=== PATIENT | male | born 1985 | race Native Hawaiian/Other Pacific Islander ===

== ENCOUNTER 2023-06-26 08:32 | Outpatient (AMB) | payer OTHER, SELFPAY ==
[2023-06-26 08:44] VITALS: BP 136/86; PULSE 57; RESP 12; TEMP 36.6; O2SAT 99; BMI 30.4
--- NOTE | 2023-06-26 08:44 | MHC.PC.OV ---
Vital Signs 06/26/23 08:44 Height 6 ft Weight 224 lb 6 oz BMI 30.4 BP 136/86 Blood Pressure Location Lt brachial Position Sitting Respiration 12 Pulse 57 Pulse Source Pulse Oximeter Temp 97.8 F Temp Source Temporal Artery Scan Pulse Oximetry (%) 99 Oxygen Delivery Method Room Air Intake Visit Reasons: CPE Intake Note: Patient states that he would like a referral to a Rn Relief Charge. Patient states that his arms have been itching and still has dry cracked skin in palms of his hands. Patient states he would also like a referral to security assurance specialist to get his hands looked at due to him dropping things and still having sharp pain in hands. Patient is nervous that when it gets colder out hes ora have a harder time with his hands. Cargo Mate Required: No Accompanied by: Spouse Allergies No Known Allergies Allergy (Verified 06/26/23 09:00) Medication List - Last Reconciled 06/26/23 by Sammie Lo CNP naproxen 500 mg PO BID PRN 30 days Tobacco use date assessed: 05/01/23 Dental Screening Dental Screen Date: 06/26/23 Did you have a dental visit in the last 12 months?: Yes Did you have a dental problem in the last 6 months where you did not have access to dental care?: No Was dental information given to patient?: Patient has dentist HPI HPI Comments History of Present Illness Details 38-year-old male presents for complete physical exam. Reports dry skin to an area of his right palm; sometimes itchy. He has been applying lotion with no improvement. He reports significant improvement of rash to exposed areas of skin. He notes he has been taking Benadryl, using sunscreen, and protecting the areas from the sun. He states that the pain and weakness to his left hand has significantly improved. He notes he takes naproxen as prescribed. 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 Sidney Cartagena, Matilda Maldonado, Sergo Weir and colleagues, with an educational kasie from [employer]. Review of Systems Const Details: Denies chills, Denies fatigue, Denies fever(s), Denies headache(s) and Denies weakness HEENT Denies change in vision, Denies dizziness, Denies headache(s), Denies hearing loss, Denies nasal congestion, Denies sinus pain, Denies sinus pressure and Denies sore throat Card Denies chest pain, Denies lightheadedness, Denies dyspnea and Denies other (palpitations) Resp Denies cough, Denies dyspnea and Denies wheezing GI Denies abdominal pain, Denies melena, Denies hematochezia, Denies change in bowel habits, Denies dyspepsia and Denies nausea Denies hematuria and Denies dysuria Musc Denies abnormal gait, Denies myalgias, Denies arthralgias, Denies numbness and Denies tingling Skin/Breast Dry skin to right palm, Denies unusual bruising and Denies wounds Neuro Denies abnormal gait, Denies dizziness, Denies headache(s), Denies memory loss, Denies numbness, Denies Sensory deficit (Neuro), Denies tingling and Denies weakness Psych Denies anxiety, Denies depression and Denies memory loss Endo Denies cold intolerance, Denies fatigue, Denies heat intolerance, Denies polydipsia and Denies polyuria Rashi/Lymph Denies easy bleeding and Denies easy bruising Aller/Immun Denies wheezing Physical exam (Primary Care) Vital Signs: Last Vital Signs Temp 97.8 F 06/26/23 08:44 Pulse 57 06/26/23 08:44 Resp 12 06/26/23 08:44 BP 136/86 06/26/23 08:44 Pulse Ox 99 06/26/23 08:44 Oxygen Delivery Method Room Air 06/26/23 08:44 BMI result Body Mass Index 30.4 Tobacco/Smoking Status: Tobacco use Status Tobacco use date assessed 05/01/23 06/26/23 08:54 Patient Tobacco Use Status Former Tobacco user 06/26/23 08:54 Tobacco use type Cigarette 06/26/23 08:54 e-Cigarette/Vaping Use Never Used 06/26/23 08:54 Thrive Assessment: Date of Thrive Assessment Date Thrive assessed 05/01/23 06/26/23 08:54 Const Other: General: no acute distress, well developed, alert and awake Nutritional Appearance: well nourished Orientation/consciousness: patient oriented x3 HENMT Head: Yes normocephalic and Yes atraumatic Ears: hearing grossly normal bilaterally and TM's normal bilaterally General nose exam: Normal external nose present and Normal nares present Mouth: Normal oral and palatal mucosa present and moist mucous membranes Teeth and gingiva: dentition normal Throat: Yes oropharynx normal Eyes Pupils: Equal, round and reactive pupils present and Pupil accommodation reflex normal EOM: EOMs intact bilaterally Neck Neck: Yes normal visual inspection, Yes no lymphadenopathy and Yes trachea midline Thyroid: Thyroid normal Carotids: no bruits Lymphatic: no lymphadenopathy noted Chest Chest palpation & inspection: normal inspection of the chest Resp Effort & Inspection: normal respiratory effort Auscultation: clear to auscultation bilaterally Cardio Rate: regular rate Rhythm: regular rhythm Heart sounds: S1 normal heart sound present, S2 normal heart sound present, no gallops, no murmurs and no rubs Bruits: no abdominal aortic bruits and no carotid bruits GI Palpation (GI): No Abdominal aortic bruit present, Soft to palpation, nontender, No hepatosplenomegaly present and No Rebound tenderness present Auscultation: normal bowel sounds General: Yes no CVA tenderness Back/Spine/Pelvis Back: no CVA tenderness Cervical Spine: cervical ROM normal and No Cervical spine tenderness Thoracic/Lumbar Spine: thoraco-lumbar ROM normal, No pain with thoraco-lumbar ROM, No thoracic spinal tenderness and No lumbar spinal tenderness Skin General: warm and dry. Normal skin color. Normal skin turgor Lesions: no lesions Rashes: Brighter colored rash noted on sun-exposed areas of the arms, not rough or scaly.? No rash on the neck Trauma: no lacerations or abrasions Wounds: no wounds Nails: normal Neuro General: patient oriented x3, gait normal and CN's II-XI intact bilaterally Cranial nerves: Yes Equal, round and reactive pupils present Cognition (Neuro): normal cognition Gait exam (Neuro): Normal gait present Motor exam (neuro): 5/5 motor strength present throughout Sensory Exam: No Sensory deficit (Neuro) Deep tendon reflexes (DTR's): Right patellar reflex intensity grade: 2+ and Left patellar reflex intensity grade: 2+ Extrem General: Yes normal to inspection, No edema and No calf tenderness Psych Appearance: grossly normal Affect: normal affect Attitude: cooperative Thought process: Normal thought process present Assessment and Plan Assessment & Plan (1) Normal physical examination, routine: Code(s): Z00.00 - Encounter for general adult medical examination without abnormal findings Plan: No significant physical restrictions or limitations Encouraged to schedule his next physical for a year from today Return with worsening or new symptoms Verbalized understanding and agreed with the plan. (2) Hypertriglyceridemia: Code(s): E78.1 - Pure hyperglyceridemia Plan: Recent blood work reviewed with the patient Triglyceride is elevated Advised to limit foods high in saturated fat and avoid foods high trans fat Routine exercise encouraged Verbalized understanding and agreed with the plan. (3) Dry skin: Code(s): L85.3 - Xerosis cutis Plan: Reports dry skin to an area of his right palm; sometimes itchy. He has been applying lotion with no improvement. Dry, peeling skin noted to a small area of the right palm Likely dermatitis May use hydrocortisone cream twice a day Follow-up with worsening or new signs and symptoms Verbalized understanding and agreed with treatment plan. Coding Level of Care Code Est Pt Prev Care 18-39y(94385) Diagnoses Normal physical examination, routine Z00.00 Hypertriglyceridemia E78.1 Dry skin L85.3
== END 2023-06-26 09:21 | disposition home or self-care (01) ==
PROVIDERS: PCP Nurse Practitioner Family; Visit Provider Nurse Practitioner Family
DX: Z00.00 Encounter for general adult medical examination without abnormal findings (principal); E78.1 Pure hyperglyceridemia; L85.3 Xerosis cutis
CPT/HCPCS: 99395

== ENCOUNTER 2024-01-15 15:35 | Outpatient (AMB) | payer OTHER, SELFPAY ==
[2024-01-15 15:39] VITALS: BP 122/76; PULSE 62; RESP 13; TEMP 36.3; O2SAT 99; BMI 30.4
--- NOTE | 2024-01-15 15:39 | MHC.PC.OV ---
Vital Signs 01/15/24 15:39 Height 6 ft Weight 224 lb BMI 30.4 BP 122/76 Blood Pressure Location Rt brachial Position Sitting Respiration 13 Pulse 62 Pulse Source Pulse Oximeter Temp 97.3 F Temp Source Temporal Artery Scan Pulse Oximetry (%) 99 Oxygen Delivery Method Room Air Intake Visit Reasons: Requesting Referrals Power Equipment Technology Instructor Required: No Accompanied by: Self / Same As Patient Allergies No Known Allergies Allergy (Verified 01/15/24 15:46) Tobacco use date assessed: 01/15/24 Dental Screening Dental Screen Date: 01/15/24 Did you have a dental visit in the last 12 months?: Yes Did you have a dental problem in the last 6 months where you did not have access to dental care?: No Was dental information given to patient?: Patient has dentist HPI HPI Comments History of Present Illness Details 38-year-old male presents with complaints of recurring pain to his left wrist with flexion and extension. He describes the pain as predominantly aching and occasionally shocking and tingling sensation. His symptoms occur at least once daily while he is working. No numbness or loss of sensation. 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 He notes that the Naproxen is not as effective as before. He no longer was not continue taking Naproxen. He takes Ibuprofen as needed with some relief. He also reports chronic dry skin with itching to the palm of his right hand refractory to hydrocortisone cream and various swiz-lwq-[id number] moisturizers he has tried. 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 Sidney Cartagena, Matilda Maldonado, Sergo Weir and colleagues, with an educational kasie from [employer]. Review of Systems Const Details: Const Denies chills, Denies fatigue, Denies fever(s), Denies headache(s) and Denies weakness ENT Denies dizziness and Denies headache(s) Card Denies chest pain, Denies lightheadedness, Denies dyspnea and Denies other (Palpitations) Resp Denies cough, Denies dyspnea, Denies wheezing and Denies other ( shortness of breath) GI Denies abdominal pain, Denies melena, Denies hematochezia, Denies change in bowel habits, Denies dyspepsia and Denies nausea Denies hematuria and Denies dysuria Musc Reports as per HPI Skin/Breast Reports as per HPI Neuro Denies abnormal gait, Denies dizziness, Denies headache(s), Denies memory loss, Denies numbness, Denies Sensory deficit (Neuro), Denies tingling and Denies weakness Psych Denies anxiety, Denies depression, Denies memory loss Endo Denies cold intolerance, Denies fatigue, Denies heat intolerance, Denies polydipsia and Denies polyuria Aller/Immun Denies wheezing Physical exam (Primary Care) Vital Signs: Last Vital Signs Temp 97.3 F 01/15/24 15:39 Pulse 62 01/15/24 15:39 Resp 13 01/15/24 15:39 BP 122/76 01/15/24 15:39 Pulse Ox 99 01/15/24 15:39 Oxygen Delivery Method Room Air 01/15/24 15:39 BMI result Body Mass Index 30.4 Tobacco/Smoking Status: Tobacco use Status Tobacco use date assessed 01/15/24 01/15/24 15:47 Patient Tobacco Use Status Former Tobacco user 01/15/24 15:47 Tobacco use type Cigarette 01/15/24 15:47 e-Cigarette/Vaping Use Never Used 01/15/24 15:47 Thrive Assessment: Date of Thrive Assessment Date Thrive assessed 05/01/23 01/15/24 15:47 Const Other: General: no acute distress and well developed Nutritional Appearance: well nourished Orientation/consciousness: patient oriented x3 HENMT Head: Yes normocephalic and Yes atraumatic Eyes General: appearance normal, both eyes and all related structures Pupils: Equal, round and reactive pupils present EOM: EOMs intact bilaterally Resp Effort & Inspection: normal respiratory effort Auscultation: clear to auscultation bilaterally Cardio Rate: regular rate Rhythm: regular rhythm Heart sounds: S1 normal heart sound present, S2 normal heart sound present, no gallops, no murmurs and no rubs GI Palpation (GI): No Abdominal aortic bruit present, Soft to palpation, nontender, No hepatosplenomegaly present and No Rebound tenderness present Auscultation: normal bowel sounds General: Yes no CVA tenderness Back/Spine/Pelvis Back: no CVA tenderness Cervical Spine: cervical ROM normal and No Cervical spine tenderness Thoracic/Lumbar Spine: thoraco-lumbar ROM normal, No pain with thoraco-lumbar ROM, No thoracic spinal tenderness and No lumbar spinal tenderness Extrem General: Yes normal to inspection, No edema and No calf tenderness Skin General: warm and dry. Normal skin color. Normal skin turgor. Severe dry skin of the palm of right hand Lesions: no lesions Rashes: no rashes Trauma: no lacerations or abrasions Wounds: no wounds Nails: normal Neuro General: patient oriented x3, gait normal and no focal neuro deficit Cranial nerves: Yes Equal, round and reactive pupils present Cognition (Neuro): normal cognition Gait exam (Neuro): Normal gait present Sensory Exam: No Sensory deficit (Neuro) Psych Appearance: grossly normal Affect: normal affect Attitude: cooperative Thought process: Normal thought process present Assessment and Plan Assessment & Plan (1) Left wrist pain: Code(s): M25.532 - Pain in left wrist Plan: Recurrent pain of the left wrist with aching, shocking, and tingling sensation with flexion and extension of the wrist No overt trauma noted Negative Phalen and Tinel sign Likely tendinitis Advised to avoid repetitive use of the left hand/wrist until healed May use a wrist brace while working Warm/cold compresses encouraged May take ibuprofen or naproxen as needed for pain or discomfort Referred to [facility] [place] [place] hand surgery Follow-up with worsening or new symptoms Verbalized understanding and agreed with treatment plan (2) Dry skin: Code(s): L85.3 - Xerosis cutis Plan: Severe dry skin with itching of the palm of right hand Betamethasone lotion ordered. Use as prescribed Follow-up with worsening or new signs and symptoms. Next step may be referral to Dermatology Verbalized understanding and agreed with treatment plan Orders: Referrals Hand Surgery Referral M25.532 - Pain in left wrist Medications: New betamethasone dipropionate 0.05% 1 appl topical DAILY PRN 60 mL 0RF skin irritation Coding Level of Care Code Est Pt Level 4 (79458) Diagnoses Left wrist pain M25.532 Dry skin L85.3
== END 2024-01-15 16:23 | disposition home or self-care (01) ==
PROVIDERS: PCP Nurse Practitioner Family; Visit Provider Nurse Practitioner Family
DX: M25.532 Pain in left wrist (principal); L85.3 Xerosis cutis
CPT/HCPCS: 99214

== ENCOUNTER 2024-02-23 10:43 | Outpatient (REF) | payer OTHER, SELFPAY ==
--- NOTE | ~2024-02-23 | XR_ITS ---
EXAMINATION: XR WRIST, LEFT CLINICAL INFORMATION: Pain unspecified wrist. COMPARISON: None available. TECHNIQUE: PA, lateral, and oblique views of the left wrist. FINDINGS: Mild degenerative changes in the first carpometacarpal joint with joint space narrowing and hypertrophic change. Mild degenerative changes with hypertrophic change in the first metacarpophalangeal joint. Small cystic lucency in the lunate. Tiny spur/ossicle at the volar aspect of the distal radius/ulna on the lateral view. XR/XR wrist LT min 3V IMPRESSION: Mild degenerative changes in the first carpometacarpal and metacarpophalangeal joints. Recommend follow-up imaging in 10-14 days if fracture is suspected.
== END 2024-02-23 10:44 | disposition home or self-care (01) ==
LOC: HO.HOSX 10:43
PROVIDERS: Visit Provider Physician Assistant
DX: M65.4 Radial styloid tenosynovitis [de Quervain] (principal)
CPT/HCPCS: 73110

== ENCOUNTER 2024-02-23 10:44 | Outpatient (AMB) | payer OTHER, SELFPAY ==
--- NOTE | 2024-02-23 10:57 | A.OFFVIS_ITS ---
Intake Vital Signs 02/23/24 11:05 Height 6 ft Weight 224 lb BMI 30.4 Intake Visit Reasons: BABCOCK TESTER-Left wrist pain Intake Note: Linus is a 38 year old male who presents today as a new patient for a evaluation of his left wrist pain. 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 He states noticing his pain getting worse over the course of a year. Pain is worse when the weather is cold and his fingers get stiff. Patient has tried taking naproxen which didn't give him relief, however he finds mild relief when taking ibuprofen. He states resting his wrist for a week with a wrist brace provided him with relief. Denies numbness and tingling. Allergies No Known Allergies Allergy (Verified 02/23/24 10:58) HPI BABCOCK TESTER-Left wrist pain HPI Details 38-year-old right hand dominant male who presents in the office today, as a new patient, for an evaluation of left wrist pain. Patient states he has noticed the pain has been increasing over the past year, since 2022. Pain is worse when weather is cold with stiffness in the digits. He denies numbness and tingling. He reports limited ROM. He describes his wrist as intermittent severe sharp pain with pressure. Denies numbness and tingling. He does reports occasional dropping of items but does not feels this has to do with the pain. Patient has tried and failed the use of Naproxen. Patient confirms relief with the use of Ibuprofen. Patient confirms relief with the use of a brace and rest for a week. 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 He states this causes him to constantly use his hands. 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 No ecchymosis, erythema, or edema. Slight tenderness to palpation over the ulnar collateral ligament and tendon. Tenderness to palpation over the first dorsal compartment. Able to perform full finger flexion, extension, abduction, adduction, finger cross, okay sign, and thumbs up without deficit. Able to make a closed fist. Sensation intact. Positive Viral?s. Capillary refill is brisk. Radial pulse intact. Assessment & Plan Assessment & Plan (1) De Quervain's tenosynovitis, left: Code(s): M65.4 - Radial styloid tenosynovitis [de Quervain] Plan Mr. Nava is a 38-year-old right hand dominant male who presents in the office today, as a new patient, for an evaluation of left wrist pain. Patient states he has noticed the pain has been increasing over the past year, since 2022. Pain is worse when weather is cold with stiffness in the digits. He denies numbness and tingling. He reports limited ROM. He describes his wrist as intermittent severe sharp pain with pressure. Denies numbness and tingling. He does reports occasional dropping of items but does not feels this has to do with the pain. Patient has tried and failed the use of Naproxen. Patient confirms relief with the use of Ibuprofen. Patient confirms relief with the use of a brace and rest for a week. 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 He states this causes him to constantly use his hands. A referral to occupational therapy to work on ROM and strengthening of the left wrist. Patient would prefer to attend at the [facility] location. Patient was given a comfort cool brace, off the shelf. We discussed the role of cortisone injection should OT and the wrist brace not give him relief. Follow up will be in 4-6 weeks via telehealth to discuss his progression, or sooner if needed. X-rays of the left wrist which were obtained while in the office today and were reviewed by me, Marie England PA-C, revealed no acute fracture or dislocation and no degenerative changes. Orders: Orders XR wrist LT min 3V Today M25.539 - Pain in unspecified wrist OT Evaluation and Treatment Today M25.532 - Pain in left wrist, M65.4 - Radial styloid tenosynovitis [de Quervain] Patient Instructions: Scribed by Maria Del Rosario Owusu medical receptionist, for Marie England PA-C on 02/23/2024 at 10:56 am, EST. Coding Level of Care Code New Pt Level 4 (74923) Diagnoses De Quervain's tenosynovitis, left M65.4
[2024-02-23 11:05] VITALS: BMI 30.4
== END 2024-02-23 12:05 | disposition home or self-care (01) ==
PROVIDERS: PCP Nurse Practitioner Family; Visit Provider Physician Assistant
DX: M65.4 Radial styloid tenosynovitis [de Quervain] (principal)
CPT/HCPCS: 99203

== ENCOUNTER 2024-04-22 14:48 | Outpatient (RCR) | payer OTHER, SELFPAY ==
--- NOTE | 2024-04-22 15:53 | MHC.OT.EP ---
[address] [phone] Occupational Therapy Plan of Care Patient Name: Linus Nava Date of Evaluation: 04/22/24 Diagnosis: Pain Location: L radial side of wrist Pain Score: Pain Scale Used: Numeric (0 - 10) Aggravating Factors: Twisting, rotation of wrist, weig lihtfting Alleviating Factors: naproxen, voltaren, Assessment: see eval Frequency and Duration: The patient will be seen 2 xs a week for 4 weeks Short Term Goals: Pt will be compliant w/ his HEP Pt will be compliant w/ orthoses wear Pt will report a decrease of L wrist pain to 4/10 Intermediate Goals: Pt's DASH will be less than 20% Pt will report 1/10 pain w/ activity 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 Thank you once again for your referral.
--- NOTE | 2024-09-21 16:05 | MHC.OT.DC ---
[address] [phone] F: [phone] Occupational Therapy Discharge Note Patient Name: Linus Nava Provider: Marie England Diagnosis: Date of Surgery: Date of Evaluation: 04/22/24 Date of Discharge: Treatments to Date: 1 Cancellations to Date: No Shows to Date: Discharge Status: Visit Non-compliance Discharge Summary: Did not follow up after IE Electronically Signed By: Fifi Hernandez OTR/L Reviewed/agree with student documentation: N/A Therapist: Please Sign and return to therapist, thank you for your referral.
== END 2024-09-21 16:05 | disposition home or self-care (01) ==
LOC: HO.OT 14:48
PROVIDERS: PCP Nurse Practitioner Family; Visit Provider Physician Assistant
DX: M65.4 Radial styloid tenosynovitis [de Quervain] (principal); M25.532 Pain in left wrist
CPT/HCPCS: 97140; 97165; 97535